=== PATIENT | male | born 1955 | race Caucasian/White ===

== ENCOUNTER 2019-03-25 12:19 | Outpatient (CLI) | payer MEDICARE, SELFPAY ==
--- NOTE | 2019-03-25 12:38 | XR_ITS ---
WS: [id number] Left shoulder, 3 views, 03/25/2019 Clinical Data: L SHOULDER PAIN/FALL Comparison: None. Findings: No fractures or dislocations are seen. The AC joint is normal. The adjacent left clavicle, left scapu la and ribs are normal. The soft tissues are unremarkable. There are clips and saba in the left lung from surgery and also clips in the left side of the neck from surgery. XR/XR shoulder LT min 2V* [id number] Impression: Negative left shoulder.
== END 2019-03-25 12:20 | disposition home or self-care (01) ==
LOC: RAD 12:28
PROVIDERS: PCP Family Medicine; Visit Provider Family Medicine
DX: M25.512 Pain in left shoulder (principal)
CPT/HCPCS: 73030